=== PATIENT | female | born 1935 | race Caucasian/White ===

== ENCOUNTER 2018-12-25 21:51 | Emergency (ER) | payer OTHER ==
[~2018-12-25] VITALS: Ht 175.3 cm; Wt 64.9 kg
[2018-12-25 21:51] VITALS: BP 139/44
[2018-12-25] MEDS ORDERED: KETOROLAC 30 MG/ML VIAL IM ONE (22:25)
[2018-12-25 23:53] VITALS: BP 144/64
== END 2018-12-25 23:54 | disposition home or self-care (01) ==
LOC: MED 21:51
DX: S32.030A Wedge compression fracture of third lumbar vertebra, initial encounter for closed fracture (principal); S01.312A Laceration without foreign body of left ear, initial encounter; W01.0XXA Fall on same level from slipping, tripping and stumbling without subsequent striking against object, initial encounter; Y92.89 Other specified places as the place of occurrence of the external cause; Y93.89 Activity, other specified; Y99.8 Other external cause status
CPT/HCPCS: 72131; 96372; 99284; J1885